=== PATIENT | female | born 1965 | race Hispanic/Latino ===

== ENCOUNTER 2018-04-21 09:45 | Inpatient (IN) | payer MEDICARE ==
[2018-04-21] MEDS ORDERED: ASPIRIN PO ONE (10:04)
[2018-04-21 10:39] LABS: Basophils % (Auto) 0.9 % (0.0-1.8); Eosinophils # (Auto) 0.1 K/mm3 (0.0-0.4); Eosinophils % (Auto) 2.5 % (0.0-4.3); Hemoglobin 12.7 gm/dl (10.1-14.3); Lymphocytes # (Auto) 1.1 K/mm3 (1.2-5.4); Lymphocytes % (Auto) 29.1 % (13.4-35.0); Mean Corpuscular HGB Conc 34 % (30-34); Mean Corpuscular Volume 92 fl (79-97); Monocytes # (Auto) 0.3 K/mm3 (0.0-0.8); Monocytes % (Auto) 7.6 % (0.0-7.3); Platelet Count 222 K/mm3 (140-440); Red Blood Count 4.01 M/mm3 (3.65-5.03); Red Cell Distribution Width 12.9 % (13.2-15.2)
[2018-04-21 10:51] LABS: INR 0.98 (0.87-1.13)
[2018-04-21 10:52] LABS: Partial Thromboplastin Time 26.3 Sec. (24.2-36.6)
--- NOTE | 2018-04-21 11:04 | Emergency Department Report ---
ED Chest Pain HPI - General Chief Complaint: Chest Pain Stated Complaint: CHEST PAIN/ Time Seen by Provider: 04/21/18 10:56 Source: patient, EMS Mode of arrival: Stretcher Limitations: No Limitations - History of Present Illness Initial Comments: Patient is 52 years old female with history of hypertension, diabetes and suicidal ideation. Patient brought to the emergency room from [facility] for which she was admitted for suicidal ideation. Patient stated that she has been having left-sided chest pain, heaviness in nature was no radiation. Patient stated that pain was before she was admitted to the psychiatric facility and she told the previous hospital as a transfer to the psychiatric facility that she is having a chest pain and they just give her Ativan and he did not do anything for her. Patient stated that she had a car diac catheterization 4 years ago in [place] and she was told that she did not have any significant coronary artery disease. Patient denied any shortness of breath, fever, chills or cough. MD Complaint: chest pain -: days(s) Onset: during rest Pain Location: left chest Pain Radiation: none Quality: heaviness Consistency: intermittent - Related Data Allergies Allergy/AdvReac Type Severity Reaction Status Date / Time benztropine [From Cogentin] AdvReac Unknown Verified 04/21/18 10:04 hydromorphone [From Dilaudid] AdvReac Dizziness Verified 04/21/18 10:04 metoclopramide [From Reglan] AdvReac Nausea Verified 04/21/18 10:04 nitrofurantoin AdvReac Hives Verified 04/21/18 10:04 [From Macrobid] oseltamivir [From Tamiflu] AdvReac Hives Verified 04/21/18 10:04 Heart Score - HEART Score History: Moderately suspicious EKG: Non-specific Age: 45-65 Risk factors: > 3 risk factors or hx of atherosclerotic disease Troponin: < normal limit HEART Score: 5 - Critical Actions Critical Actions: 4-6 pts:12-16.6% risk of adverse cardiac event. Should be admitted ED Review of Systems ROS: Stated complaint: CHEST PAIN/ Other details as noted in HPI Comment: All other systems reviewed and negative Constitutional: denies: chills, fever ENT: denies: ear pain Respiratory: denies: cough, orthopnea, shortness of breath, SOB with exertion, SOB at rest, wheezing Cardiovascular: chest pain. denies: palpitations, dyspnea on exertion, orthopnea Gastrointestinal: denies: abdominal pain, nausea, vomiting, diarrhea, constipation, hematemesis, melena, hematochezia Musculoskeletal: denies: back pain Neurological: denies: headache, weakness, numbness, paresthesias, confusion, abnormal gait ED Past Medical Hx - Past Medical History Hx Hypertension: Yes Hx Heart Attack/AMI: Yes (2 years ago) Hx Diabetes: Yes Hx Pulmonary Embolism: Yes Hx GERD: Yes Hx Psychiatric Treatment: Yes (presently 1013) Additional medical history: hypothyroidsm, - Surgical History Past Surgical History?: No - Social History Smoking Status: Former Smoker ED Physical Exam - General Limitations: No Limitations General appearance: alert, in no apparent distress - Head Head exam: Present: atraumatic, normocephalic, normal inspection - Eye Eye exam: Present: normal appearance - ENT ENT exam: Present: normal exam, normal orophraynx, mucous membranes moist - Neck Neck exam: Present: normal inspection, full ROM. Absent: tenderness, meningismus, lymphadenopathy, thyromegaly - Respiratory Respiratory exam: Present: normal lung sounds bilaterally. Absent: respiratory distress, wheezes, rales, rhonchi, stridor, chest wall tenderness, accessory muscle use, decreased breath sounds, prolonged expiratory - Cardiovascular Cardiovascular Exam: Present: regular rate, normal rhythm, normal heart sounds - GI/Abdominal GI/Abdominal exam: Present: soft, normal bowel sounds. Absent: distended, tenderness, guarding, rebound, rigid, organomegaly, mass, bruit, pulsatile mass, hernia - Extremities Exam Extremities exam: Present: normal inspection, full ROM, normal capillary refill. Absent: pedal edema, calf tenderness - Back Exam Back exam: Present: normal inspection, full ROM. Absent: tenderness, CVA tenderness (R), CVA tenderness (L), muscle spasm, paraspinal tenderness, vertebral tenderness - Neurological Exam Neurological exam: Present: alert, oriented X3, CN II-XII intact, normal gait, reflexes normal - Psychiatric Psychiatric exam: Present: depressed - Skin Skin exam: Present: warm, intact, normal color ED Course Vital Signs 04/21/18 04/21/18 09:55 10:14 Temperature 97.6 F Pulse Rate 75 Respiratory 16 18 Rate Blood Pressure 115/72 O2 Sat by Pulse 98 Oximetry MEGAN score - Megan Score Age > 65: (0) No Aspirin use within the Past 7 Days: (0) No 3 or more CAD Risk Factors: (1) Yes 2 or more Angina events in past 24 hrs: (1) Yes Known CAD with more than 50% Stenosis: (0) No Elevated Cardiac Markers: (0) No ST Deviation Greater than 0.5mm: (0) No MEGAN Score: 2 ED Medical Decision Making - Lab Data Result diagrams: 04/21/18 10:24 04/21/18 10:24 - EKG Data -: EKG Interpreted by Me EKG shows normal: sinus rhythm Rate: normal - EKG Data Interpretation: no acute changes - Radiology Data Radiology results: image reviewed Chest x-ray is negative for acute finding. - Medical Decision Making Ms Miles is 52 years old female with history of hypertension, diabetes and suicidal ideation. Patient brought to the emergency room from [facility] for which she was admitted for suicidal ideation. Patient stated that she has been having left-sided chest pain, heaviness in nature was no radiation. Patient stated that pain was before she was admitted to the psychiatric facility and she told the previous hospital as a transfer to the psychiatric facility that she is having a chest pain and they just give her Ativan and he did not do anything for her. Patient stated that she had a cardiac catheterization 4 years ago in [place] and she was told that she did not have any significant coronary artery disease. Patient denied any shortness of breath, fever, chills or cough. Patient EKG is negative for acute finding. Chest x-ray is negative also. One set of troponin is negative. Patient has multiple cardiac risk factor. I discussed the patient is Dr. Clark, he agreed to admit patient to medical service for further management. Critical Care Time: Yes Critical care time in (mins) excluding proc time.: 30 Critical care attestation.: If time is entered above; I have spent that time in minutes in the direct care of this critically ill patient, excluding procedure time. ED Disposition Clinical Impression: Chest pain, Unstable angina Disposition: OP ADMIT IP TO THIS HOSP Is pt being admited?: Yes Condition: Stable Instructions: Chest Pain (ED), Angina (ED)
[2018-04-21 11:09] LABS: BUN/Creatinine Ratio 38; Blood Urea Nitrogen 15 mg/dL (7-17); Hemolysis Index 53
[2018-04-21] MEDS ORDERED: ZOFRAN IV ONE ×2 (12:33→17:12)
[2018-04-21] MEDS ORDERED: MORPHINE IV ONE (12:34)
--- NOTE | 2018-04-21 12:53 | XRay Report ---
FINAL REPORT EXAM: XR CHEST 1V AP HISTORY: chest pain TECHNIQUE: Frontal chest x-ray. PRIORS: None currently available. FINDINGS: Cardiac silhouette is within normal limits. There is no effusion. There is no pneumothorax. There is no consolidation. There are no suspicious osseous lesions. IMPRESSION: No acute cardiopulmonary findings.
[2018-04-21] MEDS ORDERED: MORPHINE IM ONE (17:11)
[2018-04-21] MEDS ORDERED: MORPHINE ONE (17:17)
[2018-04-21] MEDS ORDERED: ZOFRAN ONE (17:17)
[2018-04-22] MEDS ORDERED: ZOFRAN IV PRN ×2 (00:24→01:14)
[2018-04-22] MEDS ORDERED: NITRO-BID 2% TP SCH (00:30)
[2018-04-22] MEDS ORDERED: NITRO-BID 2% TP ONE ×2 (00:38→07:16)
[2018-04-22] MEDS ORDERED: ZOFRAN ONE ×2 (00:38→07:20)
[2018-04-22] MEDS ORDERED: MORPHINE ONE ×2 (00:38→07:20)
[2018-04-22] MEDS: NITRO-BID 2% TP SCH ×3 (00:47→18:00)
[2018-04-22] MEDS: MORPHINE IV PRN ×2 (00:48→07:25)
[2018-04-22] MEDS ORDERED: TYLENOL PO PRN (01:14)
[2018-04-22] MEDS ORDERED: SODIUM CHLORIDE FLUSH SYRINGE 10 ML IV PRN (01:14)
[2018-04-22] MEDS ORDERED: PERCOCET 5/325 PO PRN (01:14)
--- NOTE | 2018-04-22 01:21 | History and Physical Report ---
History of Present Illness Date of examination: 04/21/18 Date of admission: 04/21/18 12:44 Chief complaint: Chest pain Since AM History of present illness: 52 y/o female from [facility] comes in for L sided chest pain.Non radiating.No diaphoresis or Sob or Palpitations.No precipitating or exacerbating factors. Patient at [facility] for pshchosis on 101.Had Cardiac cath 4 years ago and was negative. Past Medical History Hx Hypertension: Yes Hx Heart Attack/AMI: Yes (2 years ago) Hx Diabetes: Yes Hx Pulmonary Embolism: Yes Hx GERD: Yes Hx Psychiatric Treatment: Yes (presently 101) Additional medical history: hypothyroidsm, -Surgical History Past Surgical History?: No -Social History Smoking Status: Former Smoker Review of Systems ROS: Stated complaint: CHEST PAIN/ Other details as noted in HPI Comment: All other systems reviewed and negative Constitutional: denies: chills, fever ENT: denies: ear pain Respiratory: denies: cough, orthopnea, shortness of breath, SOB with exertion, SOB at rest, wheezing Cardiovascular: chest pain. denies: palpitations, dyspnea on exertion, orthopnea Gastrointestinal: denies: abdominal pain, nausea, vomiting, diarrhea, constipation, hematemesis, melena, hematochezia Musculoskeletal: denies: back pain Neurological: denies: headache, weakness, numbness, paresthesias, confusion, abnormal gait Medications and Allergies Allergies Allergy/AdvReac Type Severity Reaction Status Date / Time benztropine [From Cogentin] AdvReac Unknown Verified 04/21/18 10:04 hydromorphone [From Dilaudid] AdvReac Dizziness Verified 04/21/18 10:04 metoclopramide [From Reglan] AdvReac Nausea Verified 04/21/18 10:04 nitrofurantoin AdvReac Hives Verified 04/21/18 10:04 [From Macrobid] oseltamivir [From Tamiflu] AdvReac Hives Verified 04/21/18 10:04 Active Meds: Active Medications Acetaminophen (Tylenol) 650 mg PO Q4H PRN PRN Reason: Pain MILD(1-3)/Fever >100.5/LONGO Morphine Sulfate (Morphine) 2 mg IV Q3H PRN PRN Reason: Pain, Moderate (4-6) Last Admin: 04/22/18 00:48 Dose: 2 mg Documented by: Nitroglycerin (Nitro-Bid 2%) 0.5 inch TP TIDNTG RAYNA; Protocol Last Admin: 04/22/18 00:47 Dose: 0.5 inch Documented by: Ondansetron HCl (Zofran) 4 mg IV Q8H PRN PRN Reason: Nausea And Vomiting Last Admin: 04/22/18 00:51 Dose: 4 mg Documented by: Ondansetron HCl (Zofran) 4 mg IV Q8H PRN PRN Reason: Nausea And Vomiting Oxycodone/Acetaminophen (Percocet 5/325) 1 tab PO Q6H PRN PRN Reason: Pain, Moderate (4-6) Sodium Chloride (Sodium Chloride Flush Syringe 10 Ml) 10 ml IV BID RAYNA Sodium Chloride (Sodium Chloride Flush Syringe 10 Ml) 10 ml IV PRN PRN PRN Reason: LINE FLUSH Exam - Constitutional Vitals: Temp Pulse Resp BP Pulse Ox 97.6 F 69 15 114/52 98 04/21/18 09:55 04/22/18 00:47 04/22/18 00:03 04/22/18 00:47 04/22/18 00:03 General appearance: Present: no acute distress, well-nourished - EENT Eyes: Present: PERRL ENT: hearing intact, clear oral mucosa - Neck Neck: Present: supple, normal ROM - Respiratory Respiratory effort: normal Respiratory: bilateral: CTA - Cardiovascular Heart rate: 78 Rhythm: regular Heart Sounds: Present: S1 & S2. Absent: rub, click - Extremities Extremities: no ischemia, pulses intact, pulses symmetrical, No edema Peripheral Pulses: within normal limits - Abdominal General gastrointestinal: Present: soft, non-tender, non-distended, normal bowel sounds Female genitourinary: Present: normal - Rectal Rectal Exam: deferred - Integumentary Integumentary: Present: clear, warm, dry - Musculoskeletal Musculoskeletal: gait normal, strength equal bilaterally - Psychiatric Psychiatric: appropriate mood/affect, intact judgment & insight - Neurologic Neurologic: CNII-XII intact, moves all extremities - Allied Health Allied health notes reviewed: nursing Results - Labs CBC & Chem 7: 04/21/18 10:24 04/21/18 10:24 Labs: Laboratory Last Values WBC 3.8 K/mm3 (4.5-11.0) L 04/21/18 10:24 RBC 4.01 M/mm3 (3.65-5.03) 04/21/18 10:24 Hgb 12.7 gm/dl (10.1-14.3) 04/21/18 10:24 Hct 37.0 % (30.3-42.9) 04/21/18 10:24 MCV 92 fl (79-97) 04/21/18 10:24 MCH 32 pg (28-32) 04/21/18 10:24 MCHC 34 % (30-34) 04/21/18 10:24 RDW 12.9 % (13.2-15.2) L 04/21/18 10:24 Plt Count 222 K/mm3 (140-440) 04/21/18 10:24 Lymph % (Auto) 29.1 % (13.4-35.0) 04/21/18 10:24 [place] % (Auto) 7.6 % (0.0-7.3) H 04/21/18 10:24 Eos % (Auto) 2.5 % (0.0-4.3) 04/21/18 10:24 Baso % (Auto) 0.9 % (0.0-1.8) 04/21/18 10:24 Lymph # 1.1 K/mm3 (1.2-5.4) L 04/21/18 10:24 [place] # 0.3 K/mm3 (0.0-0.8) 04/21/18 10:24 Eos # 0.1 K/mm3 (0.0-0.4) 04/21/18 10:24 Baso # 0.0 K/mm3 (0.0-0.1) 04/21/18 10:24 Seg Neutrophils % 59.9 % (40.0-70.0) 04/21/18 10:24 Seg Neutrophils # 2.3 K/mm3 (1.8-7.7) 04/21/18 10:24 PT 13.4 Sec. (12.2-14.9) 04/21/18 10:24 INR 0.98 (0.87-1.13) 04/21/18 10:24 APTT 26.3 Sec. (24.2-36.6) 04/21/18 10:24 Sodium 135 mmol/L (137-145) L 04/21/18 10:24 Potassium 4.2 mmol/L (3.6-5.0) 04/21/18 10:24 Chloride 100.2 mmol/L (98-107) 04/21/18 10:24 Carbon Dioxide 23 mmol/L (22-30) 04/21/18 10:24 Anion Gap 16 mmol/L 04/21/18 10:24 BUN 15 mg/dL (7-17) 04/21/18 10:24 Creatinine 0.4 mg/dL (0.7-1.2) L 04/21/18 10:24 Estimated GFR > 60 ml/min 04/21/18 10:24 BUN/Creatinine Ratio 38 % 04/21/18 10:24 Glucose 236 mg/dL (65-100) H 04/21/18 10:24 Calcium 9.0 mg/dL (8.4-10.2) 04/21/18 10:24 Troponin T < 0.010 ng/mL (0.00-0.029) 04/21/18 15:58 - Imaging and Cardiology EKG: report reviewed (NSR ) Assessment and Plan Advance Directives: Yes (FC) VTE prophylaxis?: Chemical Plan of care discussed with patient/family: Yes - Patient Problems (1) Chest pain Current Visit: Yes Status: Acute Qualifiers: Chest pain type: unspecified Qualified Code(s): R07.9 - Chest pain, u nspecified Plan to address problem: Serial Troponins and Lexiscan in AM (2) GERD (gastroesophageal reflux disease) Current Visit: Yes Status: Chronic Qualifiers: Esophagitis presence: without esophagitis Qualified Code(s): K21.9 - Gastro-esophageal reflux disease without esophagitis Plan to address problem: On Famotidine (3) Psychosis Current Visit: Yes Status: Acute Plan to address problem: On 1013 MH consult requested (4) Hyponatremia Current Visit: Yes Status: Acute Plan to address problem: Mild (5) DVT prophylaxis Current Visit: Yes Status: Acute Plan to address problem: On Lovenox and GI prophylaxis (6) Discharge planning issues Current Visit: Yes Status: Acute Plan to address problem: patinet to be transferred back to [place] if Lexiscan negative
[2018-04-22] MEDS ORDERED: TYLENOL ONE (03:15)
[2018-04-22] MEDS ORDERED: ASPIRIN ONE (07:16)
[2018-04-22] MEDS ORDERED: SODIUM CHLORIDE FLUSH SYRINGE 10 ML IV SCH (10:00)
[2018-04-22] MEDS ORDERED: LEXISCAN IV ONE (10:18)
[2018-04-22] MEDS ORDERED: PERCOCET 5/325 ONE (12:47)
[2018-04-22] MEDS ORDERED: D50W (25GM) Syringe IV PRN (12:53)
--- NOTE | 2018-04-22 15:00 | Discharge Summary ---
Providers - Providers Date of Admission: 04/21/18 12:44 Attending physician: ANGELITA JEFFERS MD Primary care physician: LIP [facility] SHANK CUTTER Hospitalization Reason for admission: chest pain Condition: Stable Hospital course: 52 y/o female from [facility] comes in for L sided chest pain.Non radiating.No diaphoresis or Sob or Palpitations.No precipitating or exacerbating factors. Patient at [facility] for pshchosis on 1013.Had Cardiac cath 4 years ago and was negative. Patient presented to have a stress test which was negative. I discussed with nursing staff while patient's medications and also the patient can be discharged has been admitted to assist with discharge back to the hospital as patient is still on 1013. Extensive counseling was also given to the patient to ensure appropriate diet and exercise to help with weight loss. Atypical chest pain secondary to anxiety Diabetes mellitus Morbid obesity GERD PSYCHOSIS HYPONATREMIA Disposition: DC- LEFT AGAINST MED ADVICE Time spent for discharge: 35 mins Core Measure Documentation - Palliative Care Palliative Care/ Comfort Measures: Not Applicable - Core Measures Any of the following diagnoses?: none - VTE Discharge Requirements Deep Vein Thrombosis/Pulmonary Embolism Present on Admission: No Exam - Physical Exam Narrative exam: VITAL SIGNS: Reviewed. GENERAL: The patient appeared well nourished and normally developed. Vital signs as documented. HEAD: No signs of head trauma. EYES: Pupils are equal. Extraocular motions intact. EARS: Hearing grossly intact. MOUTH: Oropharynx is normal. NECK: No adenopathy, no JVD. CHEST: Chest with clear breath sounds bilaterally. No wheezes, rales, or rhonchi. CARDIAC: Regular rate and rhythm. S1 and S2, without murmurs, gallops, or rubs. VASCULAR: No Edema. Peripheral pulses normal and equal in all extremities. ABDOMEN: Soft, without detectable tenderness. No sign of distention. No rebound or guarding, and no masses palpated. Bowel Sounds normal. MUSCULOSKELETAL: Good range of motion of all major joints. Extremities without clubbing, cyanosis or edema. NEUROLOGIC EXAM: Alert and oriented x 3. No focal sensory or strength deficits. Speech normal. Follows commands. PSYCHIATRIC: Mood normal. SKIN: No rash or lesions. - Constitutional Vitals: Temp Pulse Resp BP Pulse Ox 97.6 F 80 16 130/69 97 04/21/18 09:55 04/22/18 10:36 04/22/18 07:38 04/22/18 10:36 04/22/18 07:38 Plan Follow up with: PRIMARY CARE,MD [Primary Care Provider] - 3-5 Days Prescriptions: Aspirin [Aspirin BABY CHEW TAB] 81 mg PO QDAY #30 tab.chew
[2018-04-22] MEDS: HumaLOG SUB-Q SCH ×2 (19:19→22:57)
--- NOTE | 2018-04-22 22:45 | Treadmill Report ---
REASON FOR STUDY: Chest pain. READING PHYSICIAN: Tony Abdul MD IMAGING PROTOCOL: The patient received 10 mCi of Technetium 99m Tetrofosmin for resting image and 28 mCi of Technetium 99m Tetrofosmin for stress imaging. The imaging for the whole procedure was completed 30-90 minutes following the initial injection of Technetium 99m Tetrofosmin. The SPECT imaging in the 180 degree arc was performed in the right anterior oblique projection. Computerized reconstruction of the images was performed for analysis. IMAGING RESULTS: Normal cavity size from stress to rest. Normal distribution of radionuclide in the anterior, inferior, septal, and apical regions. Gated SPECT, EF of 63% with no wall motion abnormality. The patient infused with Lexiscan with no EKG changes suggestive of ischemia. SUMMARY: 1. Negative Lexiscan EKG. 2. Normal rest and stress myocardial perfusion scan. 3. No significant ischemia. No wall motion abnormality. Gated SPECT, EF of 63%. JOB# [id number] MOUNIKA/SHAWN
[2018-04-23] MEDS ORDERED: ULTRAM PO ONE (00:07)
[2018-04-23] MEDS ORDERED: RESTORIL PO ONE (00:09)
[2018-04-23] MEDS ORDERED: PHENERGAN PO PRN (07:25)
[2018-04-23] MEDS ORDERED: SUMATRIPTAN SUCCINATE 100 MG PO PRN (07:25)
--- NOTE | 2018-04-23 07:25 | Event Note ---
Date: 04/22/18 Patient was discharged, but [facility] refused to Accept the patient unless there is a re-evaluation by pSYCH. she will stay overnight to be reassessed. she remains medically cleared for discharge back.
[2018-04-23] MEDS ORDERED: IMITREX PO PRN (07:42)
[2018-04-23] MEDS: VISTARIL PO PRN ×3 (08:05→21:31)
[2018-04-23] MEDS: TRILEPTAL PO SCH (09:54)
[2018-04-23] MEDS: FLOMAX PO SCH (09:55)
[2018-04-23] MEDS: HumaLOG SUB-Q SCH ×4 (10:02→23:20)
[2018-04-23] MEDS: SYNTHROID PO SCH (10:45)
--- NOTE | 2018-04-23 11:01 | Progress Note ---
Assessment and Plan Assessment and plan: 52 y/o female from [facility] comes in for L sided chest pain.Non radiating.No diaphoresis or Sob or Palpitations.No precipitating or exacerbating factors. Patient at [facility] for pshchosis on 1012.Had Cardiac cath 4 years ago and was negative. Patient presented to have a stress test which was negative. I discussed with nursing staff while patient's medications and also the patient can be discharged has been admitted to assist with discharge back to the hospital as patient is still on 1012. Extensive counseling was also given to the patient to ensure appropriate diet and exercise to help with weight loss. Atypical chest pain secondary to anxiety Diabetes mellitus Morbid obesity GERD PSYCHOSIS HYPONATREMIA plan Ischemic work up negative Medically cleared for discharge back to [place] Awaiting Pych eval Pain control. DVT/GI prophy Discussed with case management History Interval history: Admitted with chest pain. complained of flank pain but could not give specifics just wants pain meds No other complaints. Hospitalist Physical - Physical exam Narrative exam: VITAL SIGNS: Reviewed. GENERAL: The patient appeared well nourished and normally developed. Vital signs as documented. HEAD: No signs of head trauma. EYES: Pupils are equal. Extraocular motions intact. EARS: Hearing grossly intact. MOUTH: Oropharynx is normal. NECK: No adenopathy, no JVD. CHEST: Chest with clear breath sounds bilaterally. No wheezes, rales, or rhonchi. CARDIAC: Regular rate and rhythm. S1 and S2, without murmurs, gallops, or rubs. VASCULAR: No Edema. Peripheral pulses normal and equal in all extremities. ABDOMEN: Soft, without detectable tenderness. No sign of distention. No rebound or guarding, and no masses palpated. Bowel Sounds normal. MUSCULOSKELETAL: Good range of motion of all major joints. Extremities without clubbing, cyanosis or edema. NEUROLOGIC EXAM: Alert and oriented x 3. No focal sensory or strength deficits. Speech normal. Follows commands. PSYCHIATRIC: Mood normal. SKIN: No rash or lesions. - Constitutional Vitals: Temp Pulse Resp BP Pulse Ox 98.4 F 80 16 115/55 97 04/22/18 18:06 04/22/18 19:40 04/22/18 19:40 04/22/18 19:40 04/22/18 19:40 General appearance: Present: no acute distress, well-nourished Results - Labs CBC & Chem 7: 04/21/18 10:24 04/21/18 10:24 Labs: Laboratory Last Values WBC 3.8 K/mm3 (4.5-11.0) L 04/21/18 10:24 RBC 4.01 M/mm3 (3.65-5.03) 04/21/18 10:24 Hgb 12.7 gm/dl (10.1-14.3) 04/21/18 10:24 Hct 37.0 % (30.3-42.9) 04/21/18 10:24 MCV 92 fl (79-97) 04/21/18 10:24 MCH 32 pg (28-32) 04/21/18 10:24 MCHC 34 % (30-34) 04/21/18 10:24 RDW 12.9 % (13.2-15.2) L 04/21/18 10:24 Plt Count 222 K/mm3 (140-440) 04/21/18 10:24 Lymph % (Auto) 29.1 % (13.4-35.0) 04/21/18 10:24 [place] % (Auto) 7.6 % (0.0-7.3) H 04/21/18 10:24 Eos % (Auto) 2.5 % (0.0-4.3) 04/21/18 10:24 Baso % (Auto) 0.9 % (0.0-1.8) 04/21/18 10:24 Lymph # 1.1 K/mm3 (1.2-5.4) L 04/21/18 10:24 [place] # 0.3 K/mm3 (0.0-0.8) 04/21/18 10:24 Eos # 0.1 K/mm3 (0.0-0.4) 04/21/18 10:24 Baso # 0.0 K/mm3 (0.0-0.1) 04/21/18 10:24 Seg Neutrophils % 59.9 % (40.0-70.0) 04/21/18 10:24 Seg Neutrophils # 2.3 K/mm3 (1.8-7.7) 04/21/18 10:24 PT 13.4 Sec. (12.2-14.9) 04/21/18 10:24 INR 0.98 (0.87-1.13) 04/21/18 10:24 APTT 26.3 Sec. (24.2-36.6) 04/21/18 10:24 Sodium 135 mmol/L (137-145) L 04/21/18 10:24 Potassium 4.2 mmol/L (3.6-5.0) 04/21/18 10:24 Chloride 100.2 mmol/L (98-107) 04/21/18 10:24 Carbon Dioxide 23 mmol/L (22-30) 04/21/18 10:24 Anion Gap 16 mmol/L 04/21/18 10:24 BUN 15 mg/dL (7-17) 04/21/18 10:24 Creatinine 0.4 mg/dL (0.7-1.2) L 04/21/18 10:24 Estimated GFR > 60 ml/min 04/21/18 10:24 BUN/Creatinine Ratio 38 % 04/21/18 10:24 Glucose 236 mg/dL (65-100) H 04/21/18 10:24 POC Glucose 232 (70-105) H 04/23/18 08:21 Calcium 9.0 mg/dL (8.4-10.2) 04/21/18 10:24 Troponin T < 0.010 ng/mL (0.00-0.029) 04/21/18 15:58
[2018-04-23] MEDS: ZOFRAN ODT PO PRN (12:06)
[2018-04-23] MEDS: TORADOL IV PRN ×2 (12:56→21:28)
[2018-04-23] MEDS: GLUCOPHAGE PO SCH (16:37)
[2018-04-23] MEDS ORDERED: NON-FORMULARY (Metformin Hcl [Glucophage] 1,000 MG) PO SCH (18:00)
[2018-04-23] MEDS: COREG PO SCH (18:58)
[2018-04-23] MEDS ORDERED: TRILEPTAL PO SCH (22:00)
[2018-04-23] MEDS ORDERED: SINGULAIR PO SCH (22:00)
[2018-04-23] MEDS ORDERED: CLARITIN PO SCH (22:00)
[2018-04-24] MEDS: VISTARIL PO PRN ×3 (04:02→17:39)
[2018-04-24 04:18] LABS: Bacteria,Urine 1+ /HPF (Negative); Bilirubin,Urine NEG (Negative); Blood,Urine NEG (Negative); Color,Urine Amber (Yellow); Mucus,Urine 2+ /HPF; Urobilinogen,Urine < 2.0 mg/dL (<2.0)
[2018-04-24 04:20] LABS: Amphetamine Screen,Urine PRESUMPTIVE NEGATIVE; Cannabinoid Screen,Urine PRESUMPTIVE NEGATIVE; Cocaine Screen,Urine PRESUMPTIVE NEGATIVE; Methadone Screen,Urine PRESUMPTIVE NEGATIVE; Opiate Screen,Urine PRESUMPTIVE NEGATIVE
[2018-04-24 04:31] LABS: Benzodiazepines Screen,Urine PRESUMPTIVE POSITIVE
[2018-04-24] MEDS: TORADOL IV PRN ×2 (05:40→14:26)
[2018-04-24] MEDS: SYNTHROID PO SCH (05:40)
[2018-04-24] MEDS: HumaLOG SUB-Q SCH ×3 (08:37→17:13)
--- NOTE | 2018-04-24 09:28 | Progress Note ---
Assessment and Plan Assessment and plan: 52 y/o female from [facility] comes in for L sided chest pain.Non radiating.No diaphoresis or Sob or Palpitations.No precipitating or exacerbating factors. Patient at [facility] for pshchosis on 1012.Had Cardiac cath 4 years ago and was negative. Patient presented to have a stress test which was negative. I discussed with nursing staff while patient's medications and also the patient can be discharged has been admitted to assist with discharge back to the hospital as patient is still on 101. Extensive counseling was also given to the patient to ensure appropriate diet and exercise to help with weight loss. Atypical chest pain secondary to anxiety Diabetes mellitus Morbid obesity Acute cystitis GERD PSYCHOSIS HYPONATREMIA plan Ischemic work up negative Starting empiric antibiotic coverage Adjust diabetic medication Medically cleared for discharge back to [place] Awaiting Pych eval Pain control. DVT/GI prophy Discussed with case management History Interval history: Admitted with chest pain. No new complaints of bilateral flank pain. She is emotional today and wants to go home. She denies suicidal ideation. No other complaints. Hospitalist Physical - Physical exam Narrative exam: VITAL SIGNS: Reviewed. GENERAL: The patient appeared well nourished and normally developed. Crying this morning. Vital signs as documented. HEAD: No signs of head trauma. EYES: Pupils are equal. Extraocular motions intact. EARS: Hearing grossly intact. MOUTH: Oropharynx is normal. NECK: No adenopathy, no JVD. CHEST: Chest with clear breath sounds bilaterally. No wheezes, rales, or rhonchi. CARDIAC: Regular rate and rhythm. S1 and S2, without murmurs, gallops, or rubs. VASCULAR: No Edema. Peripheral pulses normal and equal in all extremities. ABDOMEN: Soft, without detectable tenderness. No sign of distention. No rebound or guarding, and no masses palpated. Bowel Sounds normal. MUSCULOSKELETAL: Good range of motion of all major joints. Extremities without clubbing, cyanosis or edema. NEUROLOGIC EXAM: Alert and oriented x 3. No focal sensory or strength deficits. Speech normal. Follows commands. PSYCHIATRIC: Mood normal. SKIN: No rash or lesions. - Constitutional Vitals: Temp Pulse Resp BP Pulse Ox 97.4 F L 74 18 112/43 93 04/24/18 05:17 04/24/18 05:17 04/24/18 05:17 04/24/18 05:17 04/24/18 05:17 General appearance: Present: no acute distress, well-nourished Results - Labs CBC & Chem 7: 04/24/18 13:33 04/24/18 13:33 Labs: Laboratory Last Values WBC 3.8 K/mm3 (4.5-11.0) L 04/21/18 10:24 RBC 4.01 M/mm3 (3.65-5.03) 04/21/18 10:24 Hgb 12.7 gm/dl (10.1-14.3) 04/21/18 10:24 Hct 37.0 % (30.3-42.9) 04/21/18 10:24 MCV 92 fl (79-97) 04/21/18 10:24 MCH 32 pg (28-32) 04/21/18 10:24 MCHC 34 % (30-34) 04/21/18 10:24 RDW 12.9 % (13.2-15.2) L 04/21/18 10:24 Plt Count 222 K/mm3 (140-440) 04/21/18 10:24 Lymph % (Auto) 29.1 % (13.4-35.0) 04/21/18 10:24 [place] % (Auto) 7.6 % (0.0-7.3) H 04/21/18 10:24 Eos % (Auto) 2.5 % (0.0-4.3) 04/21/18 10:24 Baso % (Auto) 0.9 % (0.0-1.8) 04/21/18 10:24 Lymph # 1.1 K/mm3 (1.2-5.4) L 04/21/18 10:24 [place] # 0.3 K/mm3 (0.0-0.8) 04/21/18 10:24 Eos # 0.1 K/mm3 (0.0-0.4) 04/21/18 10:24 Baso # 0.0 K/mm3 (0.0-0.1) 04/21/18 10:24 Seg Neutrophils % 59.9 % (40.0-70.0) 04/21/18 10:24 Seg Neutrophils # 2.3 K/mm3 (1.8-7.7) 04/21/18 10:24 PT 13.4 Sec. (12.2-14.9) 04/21/18 10:24 INR 0.98 (0.87-1.13) 04/21/18 10:24 APTT 26.3 Sec. (24.2-36.6) 04/21/18 10:24 Sodium 135 mmol/L (137-145) L 04/21/18 10:24 Potassium 4.2 mmol/L (3.6-5.0) 04/21/18 10:24 Chloride 100.2 mmol/L (98-107) 04/21/18 10:24 Carbon Dioxide 23 mmol/L (22-30) 04/21/18 10:24 Anion Gap 16 mmol/L 04/21/18 10:24 BUN 15 mg/dL (7-17) 04/21/18 10:24 Creatinine 0.4 mg/dL (0.7-1.2) L 04/21/18 10:24 Estimated GFR > 60 ml/min 04/21/18 10:24 BUN/Creatinine Ratio 38 % 04/21/18 10:24 Glucose 236 mg/dL (65-100) H 04/21/18 10:24 POC Glucose 251 (70-105) H 04/24/18 08:02 Calcium 9.0 mg/dL (8.4-10.2) 04/21/18 10:24 Troponin T < 0.010 ng/mL (0.00-0.029) 04/21/18 15:58 Urine Color [place] (Yellow) 04/24/18 03:50 Urine Turbidity Slightly-cloudy (Clear) 04/24/18 03:50 Urine pH 5.0 (5.0-7.0) 04/24/18 03:50 Ur Specific [place] 1.037 (1.003-1.030) H 04/24/18 03:50 Urine Protein 30 mg/dl mg/dL (Negative) 04/24/18 03:50 Urine Glucose (UA) >=500 mg/dL (Negative) 04/24/18 03:50 Urine Ketones Neg mg/dL (Negative) 04/24/18 03:50 Urine Blood Neg (Negative) 04/24/18 03:50 Urine Nitrite Neg (Negative) 04/24/18 03:50 Urine Bilirubin Neg (Negative) 04/24/18 03:50 Urine Urobilinogen < 2.0 mg/dL (<2.0) 04/24/18 03:50 Ur Leukocyte Esterase Sm (Negative) 04/24/18 03:50 Urine WBC (Auto) 40.0 /HPF (0.0-6.0) H 04/24/18 03:50 Urine RBC (Auto) 3.0 /HPF (0.0-6.0) 04/24/18 03:50 U Epithel Cells (Auto) 4.0 /HPF (0-13.0) 04/24/18 03:50 Urine Bacteria (Auto) 1+ /HPF (Negative) 04/24/18 03:50 Urine Mucus 2+ /HPF 04/24/18 03:50 Urine Yeast (Budding) Few /HPF 04/24/18 03:50 Urine Opiates Screen Presumptive negative 04/24/18 03:50 Urine Methadone Screen Presumptive negative 04/24/18 03:50 Ur Barbiturates Screen Presumptive negative 04/24/18 03:50 Ur Phencyclidine Scrn Presumptive negative 04/24/18 03:50 Ur Amphetamines Screen Presumptive negative 04/24/18 03:50 U Benzodiazepines Scrn Presumptive positive 04/24/18 03:50 Urine Cocaine Screen Presumptive negative 04/24/18 03:50 U Marijuana (THC) Screen Presumptive negative 04/24/18 03:50 Drugs of Abuse Note Disclamer 04/24/18 03:50
[2018-04-24] MEDS: ZOFRAN ODT PO PRN (09:42)
--- NOTE | 2018-04-24 10:12 | Query- Dyspnea ---
Awa Salinas____[place] Date:___04/24/2018 Retail Sales Lead/CDS:___Paula/Petty Phone#:___[phone] Exercise your independent professional judgment when responding to query. Questions asked do not imply a particular answer is desired or expected. We greatly appreciate your clarification on this issue. Clinical Documentation States: 52 y/o female from [facility] comes in for L sided chest pain.Non radiating.No diaphoresis or Sob or Palpitations.No precipitating or exacerbating factors. Clinical Findings Show: Oxygen flow rate (04/21): 3L/min RR: 20 Please clarify if the patient had any of the following conditions based on the above clinical findings: [ ] Respiratory Failure [ ] Acute [ ] Acute on Chronic [ ] Chronic [ ] Respiratory failure due to trauma [ ] Acute Respiratory Distress Syndrome [ ] Other: [ X] Unable to determine [ ] Comment/Explanation: Present on Admission: [ X] Yes (Y) [ ] Clinically undeterminable (W) [ ] No (N) Please also document response in your Progress Notes and/or Discharge Summary and indicate if the condition was present on admission. MTDD
[2018-04-24] MEDS: TRILEPTAL PO SCH (11:13)
[2018-04-24] MEDS: FLOMAX PO SCH (11:13)
[2018-04-24 13:58] LABS: Hematocrit 40.1 % (30.3-42.9); Hemoglobin 13.5 gm/dl (10.1-14.3); Mean Corpuscular HGB Conc 34 % (30-34); Mean Corpuscular Volume 93 fl (79-97)
[2018-04-24 14:14] LABS: BUN/Creatinine Ratio 40; Blood Urea Nitrogen 20 mg/dL (7-17); Calcium 9.1 mg/dL (8.4-10.2); Hemolysis Index 31
--- NOTE | 2018-04-24 14:18 | Consultation ---
History of Present Illness - Reason for Consult Consult date: 04/24/18 Reason for consult: Initial Psychiatric Evaluation - History of Present Psychiatric Illness Patient not seen. Accepted to [facility]. Medications and Allergies Allergies Allergy/AdvReac Type Severity Reaction Status Date / Time nitrofurantoin Allergy Hives Verified 04/26/18 07:13 [From Macrobid] oseltamivir [From Tamiflu] Allergy Hives Verified 04/26/18 07:13 benztropine [From Cogentin] AdvReac Unknown Verified 04/26/18 07:13 hydromorphone [From Dilaudid] AdvReac Dizziness Verified 04/26/18 07:13 metoclopramide [From Reglan] AdvReac Nausea Verified 04/26/18 07:13 Home Medications Medication Instructions Recorded Confirmed Last Taken Type Aspirin [Aspirin BABY CHEW TAB] 81 mg PO QDAY #30 tab.chew 04/22/18 Unknown Rx AtorvaSTATin [Lipitor] 40 mg PO QHS 04/22/18 04/22/18 Unknown History Brexpiprazole [Rexulti] 2 mg PO QAM 04/22/18 04/22/18 Unknown History Carvedilol [Coreg] 3.125 mg PO QPM 04/22/18 04/22/18 Unknown History Ibuprofen [Motrin 800 MG tab] 800 mg PO Q8HR PRN 04/22/18 04/22/18 Unknown History Levothyroxine [Synthroid] 150 mcg PO QAM 04/22/18 04/22/18 Unknown History Loratadine [Claritin] 10 mg PO HS 04/22/18 04/22/18 Unknown History Metformin HCl [Glucophage] 1,000 mg PO QPM 04/22/18 04/22/18 Unknown History Montelukast [Singulair] 10 mg PO HS 04/22/18 04/22/18 Unknown History OXcarbazepine [Trileptal] 300 mg PO QAM 04/22/18 04/22/18 Unknown History OXcarbazepine [Trileptal] 600 mg PO HS 04/22/18 04/22/18 Unknown History Ondansetron [Zofran ODT TAB] 4 mg PO Q4H PRN 04/22/18 04/22/18 Unknown History Promethazine [Phenergan] 25 mg PO Q4HR PRN 04/22/18 04/22/18 Unknown History SUMAtriptan SUCCINATE [Imitrex] 100 mg PO Q6H PRN 04/22/18 04/22/18 Unknown History Tamsulosin HCl [Flomax] 0.4 mg PO DAILY 04/22/18 04/22/18 Unknown History hydrOXYzine PAMOATE [Vistaril] 50 mg PO TID PRN 04/22/18 04/22/18 Unknown History traZODone [Desyrel] 50 mg PO QHS PRN 04/22/18 04/22/18 Unknown History Ciprofloxacin HCl [Ciprofloxacin 500 mg PO Q12HR #6 tab 04/24/18 Unknown Rx TAB] traMADol [Ultram 50 MG tab] 50 mg PO Q6HR PRN #12 tablet 04/26/18 Unknown Rx Active Meds: Active Medications Atorvastatin Calcium (Lipitor) 40 mg PO QHS [facility] Last Admin: 04/23/18 21:31 Dose: 40 mg Documented by: Carvedilol (Coreg) 3.125 mg PO QPM [facility] Last Admin: 04/23/18 18:58 Dose: 3.125 mg Documented by: Hydroxyzine Pamoate (Vistaril) 50 mg PO TID PRN PRN Reason: Anxiety Last Admin: 04/24/18 11:22 Dose: 50 mg Documented by: Insulin Human Lispro (Humalog) 0 unit SUB-Q [facility]; Protocol Last Admin: 04/24/18 13:10 Dose: 4 unit Documented by: Ketorolac Tromethamine (Toradol) 30 mg IV Q8H PRN PRN Reason: Pain, Moderate (4-6) Stop: 04/28/18 11:58 Last Admin: 04/24/18 05:40 Dose: 30 mg Documented by: Levothyroxine Sodium (Synthroid) 150 mcg PO DAILY@0600 [facility] Last Admin: 04/24/18 05:40 Dose: 150 mcg Documented by: Loratadine (Claritin) 10 mg PO [facility] Last Admin: 04/23/18 21:31 Dose: 10 mg Documented by: Metformin HCl (Glucophage) 1,000 mg PO QPMDIAB [facility] Last Admin: 04/23/18 16:37 Dose: 1,000 mg Documented by: Montelukast Sodium (Singulair) 10 mg PO [facility] Last Admin: 04/23/18 21:31 Dose: 10 mg Documented by: Ondansetron HCl (Zofran Odt) 4 mg PO Q4H PRN PRN Reason: Nausea Last Admin: 04/24/18 09:42 Dose: 4 mg Documented by: Oxcarbazepine (Trileptal) 300 mg PO QAM [facility] Last Admin: 04/24/18 11:13 Dose: 300 mg Documented by: Oxcarbazepine (Trileptal) 600 mg PO HS [facility] Last Admin: 04/23/18 21:30 Dose: 600 mg Documented by: Promethazine HCl (Phenergan) 25 mg PO Q4HR PRN PRN Reason: Nausea Sumatriptan Succinate (Imitrex) 100 mg PO Q6H PRN PRN Reason: MIGRAINE LONGO Tamsulosin HCl (Flomax) 0.4 mg PO DAILY [facility] Last Admin: 04/24/18 11:13 Dose: 0.4 mg Documented by: Mental Status Exam - Vital signs Last Vital Signs Temp 98.0 F 04/24/18 11:07 Pulse 81 04/24/18 11:07 Resp 20 04/24/18 11:07 BP 138/70 04/24/18 11:07 Pulse Ox 96 04/24/18 11:07 Results Result Diagrams: 04/24/18 13:33 04/24/18 13:33 Abnormal lab results 04/23/18 04/23/18 04/24/18 Range/Units 16:11 23:09 03:50 RDW (13.2-15.2) % BUN (7-17) mg/dL Creatinine (0.7-1.2) mg/dL Glucose (65-100) mg/dL POC Glucose 266 H 214 H (70-105) Ur Specific [place] 1.037 H (1.003-1.030) Urine WBC (Auto) 40.0 H (0.0-6.0) /HPF 04/24/18 04/24/18 04/24/18 Range/Units 08:02 13:33 13:33 RDW 13.0 L (13.2-15.2) % BUN 20 H (7-17) mg/dL Creatinine 0.5 L (0.7-1.2) mg/dL Glucose 304 H (65-100) mg/dL POC Glucose 251 H (70-105) Ur Specific [place] (1.003-1.030) Urine WBC (Auto) (0.0-6.0) /HPF All other labs normal.
--- NOTE | 2018-04-24 14:25 | Discharge Summary ---
Providers - Providers Date of Admission: 04/21/18 12:44 Attending physician: ANGELITA JEFFERS MD 04/22/18 15:57 Consult to Mental Health [CONS] Routine Reason For Exam: pt came as 1012 Valentines request reeval before retur Place consult to:: Valentines Notified:: mental health Primary care physician: [employer] Hospitalization Reason for admission: chest pain Condition: Stable Hospital course: 52 y/o female from [facility] comes in for L sided chest pain.Non radiating.No diaphoresis or Sob or Palpitations.No precipitating or exacerbating factors. Patient at [facility] for pshchosis on 1012.Had Cardiac cath 4 years ago and was negative. Patient presented to have a stress test which was negative. I discussed with nursing staff while patient's medications and also the patient can be discharged has been admitted to assist with discharge back to the hospital as patient is still on 1012. Extensive counseling was also given to the patient to ensure appropriate diet and exercise to help with weight loss. Atypical chest pain secondary to anxiety Diabetes mellitus Morbid obesity GERD PSYCHOSIS HYPONATREMIA Disposition: [id number] PSY HOSP/PSY UNIT Time spent for discharge: 35 mins Core Measure Documentation - Palliative Care Palliative Care/ Comfort Measures: Not Applicable - Core Measures Any of the following diagnoses?: none Exam - Physical Exam Narrative exam: VITAL SIGNS: Reviewed. GENERAL: The patient appeared well nourished and normally developed. Vital sign s as documented. HEAD: No signs of head trauma. EYES: Pupils are equal. Extraocular motions intact. EARS: Hearing grossly intact. MOUTH: Oropharynx is normal. NECK: No adenopathy, no JVD. CHEST: Chest with clear breath sounds bilaterally. No wheezes, rales, or rhonchi. CARDIAC: Regular rate and rhythm. S1 and S2, without murmurs, gallops, or rubs. VASCULAR: No Edema. Peripheral pulses normal and equal in all extremities. ABDOMEN: Soft, without detectable tenderness. No sign of distention. No rebound or guarding, and no masses palpated. Bowel Sounds normal. MUSCULOSKELETAL: Good range of motion of all major joints. Extremities without clubbing, cyanosis or edema. NEUROLOGIC EXAM: Alert and oriented x 3. No focal sensory or strength deficits. Speech normal. Follows commands. PSYCHIATRIC: Mood normal. SKIN: No rash or lesions. - Constitutional Vitals: Temp Pulse Resp BP Pulse Ox 98.0 F 81 20 138/70 96 04/24/18 11:07 04/24/18 11:07 04/24/18 11:07 04/24/18 11:07 04/24/18 11:07 Plan Activity: advance as tolerated, fall precautions Diet: diabetic Special Instructions: record daily BP diary, record blood sugar diary Follow up with: PRIMARY CARE,MD [Primary Care Provider] - 3-5 Days Prescriptions: Aspirin [Aspirin BABY CHEW TAB] 81 mg PO QDAY #30 tab.chew Ciprofloxacin HCl [Ciprofloxacin TAB] 500 mg PO Q12HR #6 tab
[2018-04-24 14:37] LABS: Platelet Count 199 K/mm3 (140-440)
[2018-04-24] MEDS ORDERED: ROCEPHIN/NS 1 GM/50 ML 1 GM/50 ML BAG IV SCH (16:00)
[2018-04-24] MEDS: GLUCOPHAGE PO SCH (16:58)
[2018-04-24] MEDS: COREG PO SCH (17:45)
[2018-04-24 17:48] VITALS: BP 122/79
--- NOTE | 2018-04-30 15:12 | Query-Infection ---
"Awa Salinas___[place] Date:__04/30/2018 Personal Financial Planner/CDS:____Paula/Darleneabimbola Phone#:__[phone] Exercise your independent professional judgment when responding to this query. Questions asked do not imply a particular answer is desired or expected. We greatly appreciate your clarification on this issue. Clinical Documentation States: 52 y/o female from [facility] comes in for L sided chest pain. Acute cystitis Clinical findings show: (please check applicable parameters) WBC (04/21): 3.8 WI (04/21): 90 RR (04/21): 20 Infection, known /suspected, with some of the following indicators; Specify the infection: General parameters [ ] Fever (core temp >38.30C or 100.40F) [ ] Hypothermia (core temp <36C) [ ] Heart rate >90 bpm [ ] Tachypnea: >20 bpm or pCO2 < 32 mmHg [ ] Altered mental status [ ] Significant edema / +ve fluid balance (>20 ml/kg 24 h) [ ] Hyperglycemia (Bl. glucose >110 mg/dl) w/o diabetes Inflammatory parameters [ ] Leukocytosis (white blood cell count >12,000/l) [X] Leukopenia (white blood cell count <4,000/l) [ ] Bandemia (immature WBC > 10%) [ ] Leucocyte Left Shift [ ] Plasma procalcitonin>2 SD above the normal value Hemodynamic and tissue perfusion parameters [ ] Arterial hypotension(SBP <90 mmHg, MAP <70 mmHg,or a SBP drop >40 mmHg in adults) [ ] Hyperlactatemia (>3 mmol/l) [ ] Anion Gap (> 11mEG/l) [ ] Decreased capillary refill or mottling Organ dysfunction parameters [ ] Arterial hypoxemia (PaO2/FIO2 <300) [ ] Creatinine increase =0.5 mg/dl [ ] Acute oliguria (urine output <0.5 ml | kg |h or 45 mM/l for at least 2 hrs) [ ] Coagulation abnormalities (INR >1.5 or activated partial thromboplastin time >60 s) [ ] Ileus (absent erica wel sounds) [ ] Thrombocytopenia (platelet count <100,000/l) [ ] Hyperbilirubinemia (plasma total bilirubin >4 mg/dl) According to the clinical indications above, can Bacteremia be further specified? If so, please indicate below and in your Progress Notes and/ or Discharge Summary. Indicate if the condition was present on admission. PHYSICIAN RESPONSE: [x ] Sepsis [ ] Severe Sepsis [ ] Septic Shock [ ] Septicemia [ ] Sepsis now resolved [ ] SIRS due to non-infectious cause with organ dysfunction [ ] SIRS due to non-infectious cause without organ dysfunction [ ] Other: [ ] Comment/Explanation: Present on Admission: [ x] Yes (Y) [ ] Clinically undeterminable (W) [ ] No (N) [ ] Ruled Out Please also document response in your Progress Notes and/or Discharge Summary and indicate if the condition was present on admission Notes: SIRS/ SIRS WITH ORGAN DYSFUNCTION Systemic inflammatory response syndrome (SIRS) generally refers to the systemic response to trauma/coombs or other insult such as Acute Myocardial Infarction, Acute Pancreatitis, and Major Surgery with symptoms including fever, tachycardia, tachypnea, and leukocytosis (1). BACTEREMIA Presence of viable bacteria in the circulating blood (2). This term is reserved for patients that do not manifest above SIRS response. SEPTICEMIA Generally refers to a systemic disease associated with the presence of pathological microorganisms or toxins in the blood, which can include bacteria, viruses, fungi or other organisms (1). SEPSIS Generally refers to SIRS due infection (1). SEVERE SEPSIS Generally refers to sepsis associated with acute organ dysfunction (1). SEPTIC SHOCK Generally refers to circulatory failure associated with severe sepsis (2), and defined as hypotension or hypoperfusion despite adequate fluid resuscitation (1 hour) (3). REFERENCES: 1. [place] [employer]/Society of Critical Care Medicine Consensus Conference. Definitions for sepsis and organ failure and guidelines for the use of innovative therapies in sepsis. Critical Care Med 1992;20:864 - 74. 2. Sandor cowan MM, Mimi MP, Antione CEBALLOS, Tom E, Christ D, Carlitos D, Donis J, Celia SM, Vinh JL, Bernabe G; International Sepsis Definitions Conference. 2001 SCCM/ESICM/ACCP/ATS/SIS International Sepsis Definitions Conference. Intensive Care Med. 2002;29(4):530-8. Epub 2002Jul 11. Review. PubMed PMID:[id number] 3. ICD-9-CM Official Guidelines for Coding and Reporting 4. Medscape Drugs, Diseases and Procedures references 5. [employer] Textbook of Internal Medicine. 18th Edition MTDD"
== END 2018-04-24 23:45 | DRG 313 ==
LOC: ED 09:45 → 4A 12:44 → UNDODISIN 04-22 13:26 → 3A 04-22 18:31
PROVIDERS: ADMIT Internal Medicine; ATTEND Internal Medicine
DX: R07.89 Other chest pain (principal); E87.1 Hypo-osmolality and hyponatremia; N30.00 Acute cystitis without hematuria; Z68.44 Body mass index [BMI] 60.0-69.9, adult; F23 Brief psychotic disorder; E66.01 Morbid (severe) obesity due to excess calories; F41.9 Anxiety disorder, unspecified; E11.9 Type 2 diabetes mellitus without complications; E03.9 Hypothyroidism, unspecified; K21.9 Gastro-esophageal reflux disease without esophagitis; Z79.82 Long term (current) use of aspirin; Z79.899 Other long term (current) drug therapy; I25.2 Old myocardial infarction; Z86.711 Personal history of pulmonary embolism
CPT/HCPCS: 36415; 71045; 78452; 80048; 80307; 81001; 82962; 84484; 85025; 85027; 85610; 85730; 93005; 93010; 93017; 96372; 96374; 96375; 96376; G0378; A9270-GY; A9502; J0696; J1815; J1885; J2270; J2405; J2785; Q0162; Q0177

== ENCOUNTER 2018-04-26 06:23 | Emergency (ER) | payer MEDICARE ==
[2018-04-26 08:35] LABS: Basophils % (Auto) 0.7 % (0.0-1.8); Eosinophils # (Auto) 0.1 K/mm3 (0.0-0.4); Eosinophils % (Auto) 2.3 % (0.0-4.3); Hematocrit 40.2 % (30.3-42.9); Hemoglobin 13.6 gm/dl (10.1-14.3); Lymphocytes # (Auto) 1.3 K/mm3 (1.2-5.4); Lymphocytes % (Auto) 25.6 % (13.4-35.0); Mean Corpuscular HGB Conc 34 % (30-34); Mean Corpuscular Volume 93 fl (79-97); Monocytes # (Auto) 0.4 K/mm3 (0.0-0.8); Monocytes % (Auto) 8.2 % (0.0-7.3); Platelet Count 241 K/mm3 (140-440); Red Blood Count 4.33 M/mm3 (3.65-5.03); Red Cell Distribution Width 12.9 % (13.2-15.2)
[2018-04-26 08:50] LABS: Alanine Aminotransferase 16 units/L (7-56); BUN/Creatinine Ratio 36; Blood Urea Nitrogen 18 mg/dL (7-17); Calcium 9.5 mg/dL (8.4-10.2); Hemolysis Index 2
--- NOTE | 2018-04-26 08:57 | Emergency Department Report ---
ED Female HPI - General Chief complaint: Abdominal Pain Stated complaint: ABD AND BACK PAIN Time Seen by Provider: 04/26/18 08:56 Source: patient, family, RN/MD (caregiver) Mode of arrival: Wheelchair Limitations: No Limitations - History of Present Illness Initial comments: This is 52-year-old female complaining of right back and flank pain. Patient was air on 19 for the same issues. She says she was diagnosed with a kidney stone in the urinary tract infection. Denies any urinary burning or frequency. She says she is having flank pain. Denies any blood in her urine. Patient is to anchor and states. Denies any fever or chills. Denies any nausea or vomiting. Pain is 10/10 and sharp. She has a history of diabetes, GERD heart attack 2 years ago, hypertension, pulmonary embolism. She was treated here for UTI and kidney stone on the and they discharged her home on the ninth on ciprofloxacin. She says she never got ciprofloxacin and they are not given it to her head anchor. MD Complaint: other (right back and flank pain) -: This morning Location: other (right flank) Radiation: non-radiating Severity: severe Severity scale (0 -10): 10 Quality: sharp Consistency: constant Improves with: none Worsens with: none Are you Now?: No Associated Symptoms: other (menopause). denies: vaginal discharge, vaginal bleeding, abdominal pain, nausea/vomiting, fever/chills, headaches, loss of appetite, dysuria, hematuria, rash, seizure, shortness of breath, syncope, weakness - Related Data Sexually active: No Home Medications Medication Instructions Recorded Confirmed Last Taken AtorvaSTATin [Lipitor] 40 mg PO QHS 04/22/18 04/22/18 Unknown Brexpiprazole [Rexulti] 2 mg PO QAM 04/22/18 04/22/18 Unknown Carvedilol [Coreg] 3.125 mg PO QPM 04/22/18 04/22/18 Unknown Ibuprofen [Motrin 800 MG tab] 800 mg PO Q8HR PRN 04/22/18 04/22/18 Unknown Levothyroxine [Synthroid] 150 mcg PO QAM 04/22/18 04/22/18 Unknown Loratadine [Claritin] 10 mg PO HS 04/22/18 04/22/18 Unknown Metformin HCl [Glucophage] 1,000 mg PO QPM 04/22/18 04/22/18 Unknown Montelukast [Singulair] 10 mg PO HS 04/22/18 04/22/18 Unknown OXcarbazepine [Trileptal] 300 mg PO QAM 04/22/18 04/22/18 Unknown OXcarbazepine [Trileptal] 600 mg PO HS 04/22/18 04/22/18 Unknown Ondansetron [Zofran ODT TAB] 4 mg PO Q4H PRN 04/22/18 04/22/18 Unknown Promethazine [Phenergan TAB] 25 mg PO Q4HR PRN 04/22/18 04/22/18 Unknown SUMAtriptan SUCCINATE [Imitrex] 100 mg PO Q6H PRN 04/22/18 04/22/18 Unknown Tamsulosin HCl [Flomax] 0.4 mg PO DAILY 04/22/18 04/22/18 Unknown hydrOXYzine PAMOATE [Vistaril] 50 mg PO TID PRN 04/22/18 04/22/18 Unknown traZODone [Desyrel] 50 mg PO QHS PRN 04/22/18 04/22/18 Unknown Previous Rx's Medication Instructions Recorded Last Taken Type Aspirin [Aspirin BABY CHEW TAB] 81 mg PO QDAY #30 tab.chew 04/22/18 Unknown Rx Ciprofloxacin HCl [Ciprofloxacin 500 mg PO Q12HR #6 tab 04/24/18 Unknown Rx TAB] traMADol [Ultram 50 MG tab] 50 mg PO Q6HR PRN #12 tablet 04/26/18 Unknown Rx Allergies Allergy/AdvReac Type Severity Reaction Status Date / Time nitrofurantoin Allergy Hives Verified 04/26/18 07:13 [From Macrobid] oseltamivir [From Tamiflu] Allergy Hives Verified 04/26/18 07:13 benztropine [From Cogentin] AdvReac Unknown Verified 04/26/18 07:13 hydromorphone [From Dilaudid] AdvReac Dizziness Verified 04/26/18 07:13 metoclopramide [From Reglan] AdvReac Nausea Verified 04/26/18 07:13 ED Review of Systems ROS: Stated complaint: ABD AND BACK PAIN Other details as noted in HPI Constitutional: denies: chills, fever ENT: throat pain. denies: congestion Respiratory: denies: cough, shortness of breath, SOB with exertion, SOB at rest, stridor, wheezing Cardiovascular: denies: chest pain, palpitations, edema, syncope Gastrointestinal: denies: abdominal pain, nausea, vomiting, diarrhea, constipati on, hematemesis, hematochezia Genitourinary: denies: urgency, dysuria, frequency, hematuria, discharge Musculoskeletal: back pain. denies: joint swelling, arthralgia, myalgia Skin: denies: rash Neurological: denies: headache, weakness, numbness, paresthesias, confusion, abnormal gait, vertigo ED Past Medical Hx - Past Medical History Previous Medical History?: Yes Hx Hypertension: Yes Hx Heart Attack/AMI: Yes (2 years ago) Hx Diabetes: Yes Hx Pulmonary Embolism: Yes Hx GERD: Yes Hx Psychiatric Treatment: Yes Hx Asthma: No Hx COPD: No Additional medical history: hypothyroidsm, - Surgical History Past Surgical History?: No - Family History Family history: hypertension - Social History Smoking Status: Never Smoker Substance Use Type: None - Medications Home Medications: Home Medications Medication Instructions Recorded Confirmed Last Taken Type Aspirin [Aspirin BABY CHEW TAB] 81 mg PO QDAY #30 tab.chew 04/22/18 Unknown Rx AtorvaSTATin [Lipitor] 40 mg PO QHS 04/22/18 04/22/18 Unknown History Brexpiprazole [Rexulti] 2 mg PO QAM 04/22/18 04/22/18 Unknown History Carvedilol [Coreg] 3.125 mg PO QPM 04/22/18 04/22/18 Unknown History Ibuprofen [Motrin 800 MG tab] 800 mg PO Q8HR PRN 04/22/18 04/22/18 Unknown History Levothyroxine [Synthroid] 150 mcg PO QAM 04/22/18 04/22/18 Unknown History Loratadine [Claritin] 10 mg PO HS 04/22/18 04/22/18 Unknown History Metformin HCl [Glucophage] 1,000 mg PO QPM 04/22/18 04/22/18 Unknown History Montelukast [Singulair] 10 mg PO HS 04/22/18 04/22/18 Unknown History OXcarbazepine [Trileptal] 300 mg PO QAM 04/22/18 04/22/18 Unknown History OXcarbazepine [Trileptal] 600 mg PO HS 04/22/18 04/22/18 Unknown History Ondansetron [Zofran ODT TAB] 4 mg PO Q4H PRN 04/22/18 04/22/18 Unknown History Promethazine [Phenergan TAB] 25 mg PO Q4HR PRN 04/22/18 04/22/18 Unknown History SUMAtriptan SUCCINATE [Imitrex] 100 mg PO Q6H PRN 04/22/18 04/22/18 Unknown History Tamsulosin HCl [Flomax] 0.4 mg PO DAILY 04/22/18 04/22/18 Unknown History hydrOXYzine PAMOATE [Vistaril] 50 mg PO TID PRN 04/22/18 04/22/18 Unknown History traZODone [Desyrel] 50 mg PO QHS PRN 04/22/18 04/22/18 Unknown History Ciprofloxacin HCl [Ciprofloxacin 500 mg PO Q12HR #6 tab 04/24/18 Unknown Rx TAB] traMADol [Ultram 50 MG tab] 50 mg PO Q6HR PRN #12 tablet 04/26/18 Unknown Rx ED Physical Exam - General Limitations: No Limitations General appearance: alert, in no apparent distress - Head Head exam: Present: atraumatic, normocephalic, normal inspection - Eye Eye exam: Present: normal appearance, PERRL, EOMI Pupils: Present: normal accommodation - ENT ENT exam: Present: normal exam, normal orophraynx, mucous membranes moist, TM's normal bilaterally, normal external ear exam - Neck Neck exam: Present: full ROM. Absent: tenderness, lymphadenopathy - Respiratory Respiratory exam: Present: normal lung sounds bilaterally. Absent: respiratory distress, chest wall tenderness - Cardiovascular Cardiovascular Exam: Present: regular rate, normal rhythm, normal heart sounds. Absent: systolic murmur, diastolic murmur - GI/Abdominal GI/Abdominal exam: Present: soft, normal bowel sounds. Absent: distended, tenderness, guarding, rebound, rigid, organomegaly, mass - Extremities Exam Extremities exam: Present: normal inspection, full ROM, normal capillary refill, other (No cce. + 2 pulses in all extremities, no neurovascular compromise). Absent: tenderness, pedal edema, joint swelling, calf tenderness - Back Exam Back exam: Present: normal inspection, full ROM, other (ambulates without difficulties). Absent: tenderness, CVA tenderness (R), CVA tenderness (L), muscle spasm, paraspinal tenderness, vertebral tenderness, rash noted - Neurological Exam Neurological exam: Present: alert, oriented X3, normal gait - Psychiatric Psychiatric exam: Present: normal affect, normal mood - Skin Skin exam: Present: warm, dry, intact, normal color. Absent: rash ED Course Vital Signs 04/26/18 07:13 Temperature 97.3 F L Pulse Rate 72 Respiratory 20 Rate Blood Pressure 122/69 O2 Sat by Pulse 99 Oximetry - Reevaluation(s) Reevaluation #1: 04/26/18 14:03 She received tramadol 50 mg. Emergency room for pain. She is able to tolerate oral liquids. Pain is controlled. ED Medical Decision Making - Lab Data Result diagrams: 04/26/18 08:25 04/26/18 08:25 Lab Results 04/26/18 04/26/18 04/26/18 Range/Units 08:25 08:25 09:17 WBC 5.2 (4.5-11.0) K/mm3 RBC 4.33 (3.65-5.03) M/mm3 Hgb 13.6 (10.1-14.3) gm/dl Hct 40.2 (30.3-42.9) % MCV 93 (79-97) fl MCH 31 (28-32) pg MCHC 34 (30-34) % RDW 12.9 L (13.2-15.2) % Plt Count 241 (140-440) K/mm3 Lymph % (Auto) 25.6 (13.4-35.0) % [place] % (Auto) 8.2 H (0.0-7.3) % Eos % (Auto) 2.3 (0.0-4.3) % Baso % (Auto) 0.7 (0.0-1.8) % Lymph # 1.3 (1.2-5.4) K/mm3 [place] # 0.4 (0.0-0.8) K/mm3 Eos # 0.1 (0.0-0.4) K/mm3 Baso # 0.0 (0.0-0.1) K/mm3 Seg Neutrophils % 63.2 (40.0-70.0) % Seg Neutrophils # 3.3 (1.8-7.7) K/mm3 Sodium 139 (137-145) mmol/L Potassium 4.8 (3.6-5.0) mmol/L Chloride 101.2 (98-107) mmol/L Carbon Dioxide 29 (22-30) mmol/L Anion Gap 14 mmol/L BUN 18 H (7-17) mg/dL Creatinine 0.5 L (0.7-1.2) mg/dL Estimated GFR > 60 ml/min BUN/Creatinine Ratio 36 % Glucose 245 H (65-100) mg/dL Calcium 9.5 (8.4-10.2) mg/dL Total Bilirubin 0.50 (0.1-1.2) mg/dL AST 13 (5-40) units/L ALT 16 (7-56) units/L Alkaline Phosphatase 120 (35-129) units/L Total Protein 6.7 (6.3-8.2) g/dL Albumin 4.0 (3.9-5) g/dL Albumin/Globulin Ratio 1.5 % Urine Color Yellow (Yellow) Urine Turbidity Clear (Clear) Urine pH 6.0 (5.0-7.0) Ur Specific [place] 1.015 (1.003-1.030) Urine Protein 30 mg/dl (Negative) mg/dL Urine Glucose (UA) 500 (Negative) mg/dL Urine Ketones Negative (Negative) mg/dL Urine Blood Small A (Negative) Urine Nitrite Negative (Negative) Urine Bilirubin Negative (Negative) Urine Urobilinogen < 2.0 (<2.0) mg/dL Ur Leukocyte Esterase Negative (Negative) Urine WBC (Auto) 1.0 (0.0-6.0) /HPF Urine RBC (Auto) 3.0 (0.0-6.0) /HPF U Epithel Cells (Auto) 5.0 (0-13.0) /HPF - Radiology Data Radiology results: report reviewed She has CT scan of the abdomen and pelvis with contrast. 2 nonobstructive right renal calculi. No urethral calculi. Please see details below Findings [facility] [address] [place] [address] Cat Scan Report Signed Patient: SIDNEY PANG MR#: [id number] : 1965 Acct:[id number] Age/Sex: 52 / F ADM Date: 04/26/18 Loc: ED Attending Dr: Ordering Physician: HERMINIA JASSO Date of Service: 04/26/18 Procedure(s): CT abdomen pelvis wo con Accession Number(s): [id number] cc: HERMINIA JASSO CT abdomen and pelvis without contrast: Right flank pain. Transverse images were obtained from lower chest to the ischium with coronal and sagittal 2-D reformatted images. The visualized lung bases are clear. The abdominal organs are unremarkable as is the pancreas and adrenal glands. The kidneys have a normal contour bilaterally and generally normal in size. There are 2 calculi identified in the central right collecting system. These are both in the lower pole measuring 6 mm and 10 mm respectively. There is no obvious dilatation of the collecting system. No calculus noted on the left. No renal masses identified. The ureters are somewhat difficult to completely follow. There are some calculi adjacent to both ureters but no definite intra-ureteral calculus noted. The urinary bladder is generally decompressed with no calculus. The unopacified bowel is generally unremarkable as is the mesentery. The abdominal aorta is normal in size and contour. Images of the pelvis are generally unremarkable. Mild spondylosis in the lower thoracic and upper lumbar spine. Impressions: 1. Two nonobstructing right renal calculi. 2. Doubt ureteral calculus. Transcribed By: LEANN Dictated By: RADHA SAN MD Electronically Authenticated By: RADHA SAN MD Signed Date/Time: 04/26/18923 DD/ 9 TD/TT: 04/26/18923 - Medical Decision Making This is a 52-year-old female here report that she was having right flank pain and she was here and was given ciprofloxacin for urinary tract infection but she has not been receiving it and I concur. Patient had urinalysis done via straight cath and urine has no signs of infection. She has trace ketone and g reater than 500 glucose of 30 protein. Serum glucose is at 245. CBC stable, CMP stable and she is pain-free. CT scan of the abdomen and pelvis without contrast shows nonobstructing in right kidney stone but no urethral stones seen. I discussed this with the patient and I also discussed with her urinalysis and told that she does not have a urinary tract infection and does not need antibiotics. She voiced understanding. Patient was given Ultram 50 mg when necessary emergency room which relieved her pain. Vital signs stable she is afebrile and discharged home in stable condition with her caregiver from [place] to follow-up with her primary care physician in 3-5 days. I also discussed the patient is to follow-up with her urologist which she does have one. She voiced understanding and - Differential Diagnosis pyelonephritis, kidney stone, UTI, simple back pain Critical care attestation.: If time is entered above; I have spent that time in minutes in the direct care of this critically ill patient, excluding procedure time. ED Disposition Clinical Impression: Kidney stone, Right flank pain, Glucosuria Disposition: TO HOME OR SELFCARE Is pt being admited?: No Does the pt Need Aspirin: No Condition: Stable Instructions: Flank Pain (ED), Urinary Tract Infection in Women (ED) Additional Instructions: Please increase her fluid intake to at least 2 L of fluid daily to include water and avoid dark michael. This will help with flexion and stones out of fear kidney. He did not Antibiotic as he did not have urinary tract infection. Follow-up with your urologist in 3-5 days Primary care doctor in 3-5 days Referrals: PRIMARY CAREMD [Primary Care Provider] - 3-5 Days [facility] [Provider Group] - 3-5 Days Forms: Accompanied Note
--- NOTE | 2018-04-26 09:44 | Cat Scan Report ---
CT abdomen and pelvis without contrast: Right flank pain. Transverse images were obtained from lower chest to the ischium with coronal and sagittal 2-D reformatted images. The visualized lung bases are clear. The abdominal organs are unremarkable as is the pancreas and adrenal glands. The kidneys have a normal contour bilaterally and generally normal in size. There are 2 calculi identified in the central right collecting system. These are both in the lower pole measuring 6 mm and 10 mm respectively. There is no obvious dilatation of the collecting system. No calculus noted on the left. No renal masses identified. The ureters are somewhat difficult to completely follow. There are some calculi adjacent to both ureters but no definite intra-ureteral calculus noted. The urinary bladder is generally decompressed with no calculus. The unopacified bowel is generally unremarkable as is the mesentery. The abdominal aorta is normal in size and contour. Images of the pelvis are generally unremarkable. Mild spondylosis in the lower thoracic and upper lumbar spine. Impressions: 1. Two nonobstructing right renal calculi. 2. Doubt ureteral calculus.
[2018-04-26] MEDS ORDERED: ULTRAM PO ONE (10:33)
[2018-04-26 12:48] LABS: Color,Urine Yellow (Yellow)
[2018-04-26 12:49] LABS: Bilirubin,Urine Negative (Negative); Blood,Urine Small (Negative)
[2018-04-26 12:50] LABS: Urobilinogen,Urine < 2.0 mg/dL (<2.0)
[2018-04-26 14:23] VITALS: BP 114/68
== END 2018-04-26 17:03 | disposition home or self-care (01) ==
LOC: ED 06:23
DX: N20.0 Calculus of kidney (principal); R81 Glycosuria; I10 Essential (primary) hypertension; E11.9 Type 2 diabetes mellitus without complications; K21.9 Gastro-esophageal reflux disease without esophagitis; I25.2 Old myocardial infarction; E03.9 Hypothyroidism, unspecified; Z88.6 Allergy status to analgesic agent; Z88.8 Allergy status to other drugs, medicaments and biological substances
CPT/HCPCS: 36415; 74176; 80053; 81001; 85025